=== PATIENT | female | born 1950 | race Caucasian/White ===

== ENCOUNTER 2018-03-02 13:49 | Outpatient (CLI) | payer MEDICARE, OTHER ==
[2018-03-02] MEDS ORDERED: LOSARTAN POTAS100 MG ORAL (15:44)
[2018-03-02] MEDS ORDERED: ASPIR 8181 MG ORAL (15:44)
[2018-03-02] MEDS ORDERED: CRESTOR10 M2 ORAL (15:44)
[2018-03-02] MEDS ORDERED: TUMS500 MG ORAL (15:44)
--- NOTE | 2018-03-02 15:48 | GI Initial Consult Note ---
History of Present Illness General Date patient seen: Mar 02, 2018 Referring physician: None Reason for Consultation: DYSPHAGIA Present Illness HPI This is a 67-year-old female patient, main reason for visit for liver cyst evaluation, gastrointestinal issue. In addition the patient has complaint of constipation, abdominal bloating and belching and dysphagia. Denies any unintentional weight loss or changes in dietary habits. No signs of abuse or neglect. Patient is not fall risk. Home Meds Reported Medications Calcium Carbonate (Calcium) 600 Mg Tablet, 500 MG ORAL THREE TIMES A DAY PRN, # 30 TAB 0 Refills 03/02/18 Losartan Potassium (LOSARTAN POTASSIUM) 100 Mg Tablet, 100 MG ORAL DAILY, TAB 03/02/18 Aspirin* (ASPIR 81*) 81 Mg Tablet.dr, 81 MG ORAL DAILY, TAB 03/02/18 Rosuvastatin Calcium* (CRESTOR*) 10 Mg Tablet, 5 MG ORAL DAILY, TAB 03/02/18 Allergies: Coded Allergies: No Known Allergies (Unverified , 03/02/18) Patient History History Provided By: Patient, Medical Record [facility] Narrative GERD Depression Hypertension Heart disease Kidney and bladder infections Peptic ulcer disease Sleep disorder Past surgical history section Family History Narrative Father noted for heart disease Mother noted for stroke, hypertension, thyroid disease Brother and mother noted for diabetes Social History Narrative She has 2 children, no smoking history Denies any EtOH consumption States that she takes coffee approximately 4-5 cups daily Review of Systems All Other Systems: negative except mentioned in HPI Physical Exam Sp02 EP Interpretation: reviewed, normal General Appearance: well appearing, no apparent distress, alert Head: normocephalic EENT: PERRL/EOMI, normal ENT inspection Neck: supple Respiratory: normal breath sounds, no respiratory distress Cardiovascular: normal rate Gastrointestinal: normal inspection, non tender, soft, normal bowel sounds, non -distended Rectal: deferred Genitourinary: no CVA tenderness Musculoskeletal: normal inspection, back normal Neurologic: normal inspection, alert, oriented x3, responsive Psychiatric: normal inspection, judgement/insight normal, memory normal Skin: normal inspection, normal color, no rash, warm/dry, palpation normal, well hydrated Lymphatic: normal inspection, no adenopathy GI: Plan Problems: (1) Constipation (2) Liver cyst (3) Dysphasia (4) GERD (gastroesophageal reflux disease) (5) Hypertension (6) Depression (7) Colonoscopy planned Plan Plan for EGD to be scheduled March 11, 2018 -Instructed to be n.p.o. at midnight prior the day of the procedure -Patient refusing colonoscopy at this time Obtain abdominal ultrasound to evaluate liver cyst Trial of Linzess for constipation Discussed with Dr. Alvarez. Thank you for this patient referral, we will follow. The patient was seen and examined at bedside and all new and available data was reviewed in the patients chart. I agree with the above findings, impression and plan. (Patient seen earlier today. Signature stamp does not reflect patient encounter time.). - MD Amaya [facility]achoS[facility] HospitalNae[facility] GLUE DRIER OPERATOR Mar 02, 2018 15:48
== END 2018-03-02 14:19 | disposition home or self-care (01) ==
LOC: PAN 13:49
DX: K76.89 Other specified diseases of liver (principal); R13.10 Dysphagia, unspecified; K59.00 Constipation, unspecified; R14.0 Abdominal distension (gaseous); R14.2 Eructation; K21.9 Gastro-esophageal reflux disease without esophagitis; I10 Essential (primary) hypertension; F32.9 Major depressive disorder, single episode, unspecified
CPT/HCPCS: 99202

== ENCOUNTER 2018-03-13 13:06 | Outpatient (CLI) | payer MEDICARE, OTHER ==
[~2018-03-13 13:06] MED LIST: ASPIR 8181 MG ORAL; CRESTOR10 M2 ORAL; LOSARTAN POTAS100 MG ORAL; TUMS500 MG ORAL
--- NOTE | 2018-03-13 14:57 | Diagnostic Imaging Report ---
Indication: Abdominal pain Technique: Apple-scale and duplex images of the upper abdomen were obtained. Doppler interrogation of the hepatic and pancreatic vessels Comparison: none Findings: Gallbladder is unremarkable, without stones, wall thickening, nor pericholecystic fluid. Sonographic Miranda's sign is negative. Common bile duct measures 9 mm in diameter. No intrahepatic biliary ductal dilatation. Liver demonstrates normal echogenicity. 2.8 cm cyst is seen in the left hepatic lobe. 2.4 cm cyst is seen in the right hepatic lobe. Portal vein and hepatic veins are patent. Pancreas is unremarkable. Spleen is unremarkable. Left kidney measures 10.2 cm in length. Right kidney measures 9.8 cm length. Both kidneys demonstrate normal echogenicity. There is no hydronephrosis. Nonshadowing 9 mm echogenic focus is seen in the upper pole the right kidney, likely an angiomyolipoma. . Non-aneurysmal abdominal aorta . Impression: Negative for gallstones. However, the common bile duct is mildly dilated. Downstream obstruction not excludable. 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
== END 2018-03-13 15:06 | disposition home or self-care (01) ==
LOC: ULS 13:06
DX: R10.9 Unspecified abdominal pain (principal)
CPT/HCPCS: 76700